=== PATIENT | female | born 1965 | race Caucasian/White ===

== ENCOUNTER 2023-11-02 18:32 | Emergency (ER) | payer MEDICARE, OTHER ==
[~2023-11-02] VITALS: Ht 165.1 cm; Wt 70.3 kg
[2023-11-02] MEDS ORDERED: ACET-2605 PO (20:28)
[2023-11-02] MEDS ORDERED: NAPR-1164 PO (20:28)
[2023-11-02 21:01] VITALS: BP 120/76; TEMP 98.6; O2SAT 99
== END 2023-11-02 21:02 | disposition home or self-care (01) ==
LOC: ER 18:40
DX: S02.841A Fracture of lateral orbital wall, right side, initial encounter for closed fracture (principal); S02.40CA Maxillary fracture, right side, initial encounter for closed fracture; R07.81 Pleurodynia; M25.511 Pain in right shoulder; Z60.2 Problems related to living alone; W01.0XXA Fall on same level from slipping, tripping and stumbling without subsequent striking against object, initial encounter; Y93.89 Activity, other specified; Y92.512 Supermarket, store or market as the place of occurrence of the external cause; Y99.8 Other external cause status
CPT/HCPCS: 70450-TC; 70486-TC; 71100-TC; 73030-TC

== ENCOUNTER 2023-11-04 12:19 | Emergency (ER) | payer MEDICARE, OTHER ==
[~2023-11-04] VITALS: Ht 162.6 cm; Wt 59.0 kg
[~2023-11-04 12:19] MED LIST: ACET-2605 PO; NAPR-1164 PO
[2023-11-04 12:38] VITALS: BP 123/78; TEMP 98.2; O2SAT 99
[2023-11-04] MEDS ORDERED: HYDR-4303 PO (14:06)
[2023-11-04] MEDS ORDERED: CYCL5TAB PO (14:06)
[2023-11-04] MEDS ORDERED: LIDO30AD10 TP (14:06)
== END 2023-11-04 14:25 | disposition home or self-care (01) ==
LOC: ER 12:24
DX: R07.81 Pleurodynia (principal); Z79.891 Long term (current) use of opiate analgesic; Z79.1 Long term (current) use of non-steroidal anti-inflammatories (NSAID); Z79.899 Other long term (current) drug therapy; Z60.2 Problems related to living alone